=== PATIENT | male | born 1945 | race Caucasian/White ===

== ENCOUNTER 2019-03-09 08:54 | Emergency (ER) | payer MEDICARE, OTHER ==
[2019-03-09 08:59] VITALS: Wt 84.1 kg
[2019-03-09] MEDS ORDERED: CELEBREX50 MG PO (09:01)
[2019-03-09] MEDS ORDERED: CELEXA10 MG PO (09:01)
[2019-03-09] MEDS ORDERED: ZOCOR10 MG PO (09:01)
[2019-03-09] MEDS ORDERED: DETROL1 MG PO (09:02)
[2019-03-09] MEDS ORDERED: PROTONIX20 MG PO (09:02)
[2019-03-09 09:24] LABS: BASOPHILS 0.2 % (0-2); EOSINOPHILS 4.9 % (0-7); HEMATOCRIT 38.4 % (42.0-54.0); HEMOGLOBIN 12.8 g/dL (13.5-17.5); IMMATURE GRANULOCYTES 0.2 % (0-5); LYMPHOCYTES 26.7 % (15-50); MCH 31.1 pg (26.0-34.0); MCHC 33.3 g/dL (31.0-37.0); MCV 93.2 fL (80.0-100.0); MEAN PLATELET VOLUME 10.3 fL (7.4-10.4); MONOCYTES 14.6 % (2-11); NEUTROPHILS 53.4 % (40-80); PLATELET COUNT 168 10x3/uL (130-400); RBC 4.12 10x6/uL (4.20-6.10); RDW 13.4 % (11.5-14.5); WBC 5.7 10x3/uL (4.8-10.8)
[2019-03-09 09:28] LABS: APPEARANCE HAZY (CLEAR); COLOR DARK YELLOW (YELLOW)
[2019-03-09 09:29] LABS: BILIRUBIN 2+ (NEGATIVE); GLUCOSE NEGATIVE (NEGATIVE); KETONE LARGE mg/dL (NEGATIVE); NITRITE NEGATIVE (NEGATIVE); PROTEIN TRACE mg/dL (NEGATIVE); WHITE CELLS - URINE 0-5 /hpf (NEGATIVE)
[2019-03-09 09:30] LABS: AMORPHOUS SEDIMENT >1+ /lpf (NONE SEEN); BACTERIA FEW /hpf (NEGATIVE); EPITHELIAL CELLS 0-5 /hpf (0-5); MUCUS >1+ /lpf (NONE SEEN); RED CELLS - URINE 0-5 /hpf (0-5)
[2019-03-09 09:35] LABS: CALC OSMOLALITY 284 mosm/kg (275-300); CALCIUM 9.6 mg/dL (8.5-10.1); CARBON DIOXIDE 27.8 mmol/L (21.0-32.0); CHLORIDE - SERUM 104 mmol/L (98-107); CREATININE - SERUM 0.9 mg/dL (0.6-1.3); GLUCOSE 110 mg/dL (74-106); POTASSIUM - SERUM 4.2 mmol/L (3.5-5.1); SODIUM 142 mmol/L (136-145); UREA NITROGEN 15 mg/dL (7-18); eGFR NON AFRICAN AMERICAN 88 mL/min (90-120)
[2019-03-09 09:42] LABS: ALBUMIN 3.9 g/dL (3.4-5.0); ALKALINE PHOSPHATASE 174 U/L (46-116); ALT (SGPT) 198 U/L (10-68); AMYLASE - SERUM 28 U/L (25-115); BILIRUBIN - TOTAL 5.24 mg/dL (0.2-1.3); LIPASE 148 U/L (73-393); PROTEIN - SERUM 7.3 g/dL (6.4-8.2)
[2019-03-09 13:05] VITALS: BP 148/78
== END 2019-03-09 13:20 | disposition other institution (70) ==
LOC: D.ER 08:54
PROVIDERS: Family Medicine
DX: K86.9 Disease of pancreas, unspecified (principal); R17 Unspecified jaundice; R11.2 Nausea with vomiting, unspecified; R94.5 Abnormal results of liver function studies

== ENCOUNTER 2019-12-03 06:23 | Day surgery (SDC) | payer MEDICARE, OTHER ==
[~2019-12-03] VITALS: Ht 180.3 cm; Wt 81.8 kg
[~2019-12-03 06:23] MED LIST: CELEBREX50 MG PO; CELEXA10 MG PO; DETROL1 MG PO; PROTONIX20 MG PO; ZOCOR10 MG PO
[2019-12-03 06:51] LABS: HEMATOCRIT 40.9 % (42.0-54.0); HEMOGLOBIN 13.6 g/dL (13.5-17.5); MCH 30.6 pg (26.0-34.0); MCHC 33.3 g/dL (31.0-37.0); MCV 92.1 fL (80.0-100.0); MEAN PLATELET VOLUME 9.4 fL (7.4-10.4); RBC 4.44 10x6/uL (4.20-6.10); RDW 12.7 % (11.5-14.5); WBC 5.7 10x3/uL (4.8-10.8)
[2019-12-03] MEDS ORDERED: BAYER CHEWABLE81 MG PO (07:17)
[2019-12-03 07:18] VITALS: BP 139/71; Ht 180.3 cm; Wt 81.8 kg
--- NOTE | 2019-12-03 13:38 | NUR ---
1251 IV DC'D. CATHETER TIP INTACT. NO BLEEDING AT SITE. BANDAID APPLIED. REVIEWED DISCHARGE INSTRUCTIONS WITH PT AND HIS WHO BOTH VOISE UNDERSTANDING OF INSTRUCTIONS.
== END 2019-12-03 13:08 | disposition home or self-care (01) ==
LOC: D.OPS 06:23
PROVIDERS: Anesthesiology; ATTEND Surgery
DX: R10.13 Epigastric pain (principal); Z12.11 Encounter for screening for malignant neoplasm of colon; Z86.010 Personal history of colon polyps; Z80.0 Family history of malignant neoplasm of digestive organs; K63.5 Polyp of colon